=== PATIENT | male | born 1955 | race Caucasian/White ===

== ENCOUNTER 2017-01-01 06:08 | Inpatient (IN) | payer OTHER ==
[2016-12-24 10:03] LABS: HEMOGLOBIN 13.1 g/dL (13.6-17.8)
[2016-12-24 10:18] LABS: BUN (BLOOD UREA NITROGEN) 11 MG/DL (6-23); CHLORIDE, SERUM 105 MMOL/L (96-112); CREATININE 0.92 MG/DL (0.70-1.30); GFR AFRICAN AMERICAN 105 ML/MIN (>=60); GFR NON AFRICAN AMERICAN 91 ML/MIN (>=60); SODIUM, SERUM 142 MMOL/L (135-148)
[2016-12-24 10:19] LABS: CO2 (CARBON DIOXIDE) 33 MMOL/L (24-34); GLUCOSE, SERUM 90 MG/DL (60-99)
--- NOTE | ~2017-01-01 | OP ---
Record Of Operation [facility] [address] [place]. [address] NAME: GUY AGUIRRE : 59 STATUS : ADM IN PAT#: [id number] AGE: 61 ADM/REG DATE : 01/01/17 MR#: [id number] REPORT SERV DATE: 01/02/17 DICTATED BY: GARCIA BRAVO II DATE: 01/02/17 REPORT STATUS : Draft TRANSCRIBED BY: MODL DATE: 01/02/17 DATE OF PROCEDURE: 01/01/2017 PREOPERATIVE DIAGNOSES: 1. Right lower extremity radiculopathy. 2. L3-L4, L4-L5 stenosis with facet instability. 3. L4-L5 coronal collapse. 4. Spondylolisthesis L4-L5 (degenerative and iatrogenic). POSTOPERATIVE DIAGNOSES: 1. Right lower extremity radiculopathy. 2. L3-L4, L4-L5 stenosis with facet instability. 3. L4-L5 coronal collapse. 4. Spondylolisthesis L4-L5 (degenerative and iatrogenic). PROCEDURES: 1. Revision facetectomy and laminectomy, L3-L4, L4-L5. 2. Interbody arthrodesis, L3-L4, L4-L5. 3. Application of prosthetic devices, L3-L4, L4-L5. 4. Posterior segmental instrumentation, L3-L4, L4-L5. 5. Posterolateral arthrodesis L3-L4, L4-5. 6. Use of local autograft, allograft substitute, and bone morphogenic protein. 7. Use of the microscope and stereotactic spinal imaging. FLUIDS: 1700 mL LR. ESTIMATED BLOOD LOSS: 100 mL. DRAIN: One drain. COMPLICATIONS: None. IMPLANTS: Alpha-Ros. PREOPERATIVE HISTORY: This is a very friendly 61-year-old gentleman, who experienced leg pain radiating from the buttock into the thigh. We discussed the pros and cons of continuing nonoperative care versus surgery. We initially had discussed a fusion at his index surgery, but he was not interested in the fusion and wanted to try the minimally invasive nonfusion approach. Unfortunately, his spondylolisthesis appears to be worsening and his facets now appear unstable because of degeneration and following the actual laminectomy and partial facetectomy. We discussed the fusion at both levels and he understood the risks and the benefits. He is very detail oriented. The patient is very intelligent and we discussed in great detail the actual procedure as well as the benefits and the risks and the outcomes. DESCRIPTION OF PROCEDURE: After informed consent was obtained, the patient was brought to Record Of Operation [address] [place]. [address] NAME: GUY AGUIRRE : 59 STATUS : ADM IN PAT#: [id number] AGE: 61 ADM/REG DATE : 01/01/17 MR#: [id number] REPORT SERV DATE: 01/02/17 DICTATED BY: GARCIA BRAVO II DATE: 01/02/17 REPORT STATUS : Draft TRANSCRIBED BY: MODAlphonso DATE: 01/02/17 the operating room at his request and general anesthesia achieved. He was placed in a prone position and the back was prepped and draped in sterile fashion. Stereotactic spinal pin was then placed into the left iliac crest and the intraoperative CT scan completed. The stereotactic guidance was then used throughout the remainder of the case. Next, the minimally invasive incision was performed on the right at L3-L4 and L4-L5, and the remaining facets identified at L3-L4 and L4-L5. The transverse processes were also dissected upon at L3-L4 and L4-L5. With the microscope now in place, the revision facetectomy was performed at L3-L4. The pars was taken down with the high-speed bur and the Kerrison rongeurs. The L3 and L4 nerve root exhibited moderate compression upon them. The stenosis was alleviated with both facets. Next, the interbody arthrodesis was initiated with diskectomy at L3-L4. The endplates were denuded of their cartilage with the shannan and the curettes, the irrigation was performed. Next, the prosthetic device was chosen and placed at L3-L4. This contained allograft substitute and bone morphogenic protein. Next, the local autograft was also placed into the anterior column. Next, the L4-L5 level was addressed in a similar manner with facetectomy. This was a revision facetectomy also. The pedicle to pedicle decompression was achieved and the severe stenosis alleviated. The coronal collapse also was causing some significant L4 nerve root compression. At this point, after both the L4 and L5 nerve roots were acceptably decompressed, the interbody arthrodesis was initiated. The shannan were used followed by removal of additional cartilage from the endplates. The area was now irrigated followed by placement of the prosthetic device at L4-L5. This also contained allograft substitute and bone morphogenic protein. Next, the pedicle screws were applied in the L3, L4, and L5 on the right. Percutaneous screws were placed on the left in the L3 and L5. A repeat CT scan confirmed acceptable placement of implant. The rods were then final tightened. Next, the decortication was performed of the L3, L4, and L5 transverse processes on the right. Local autograft, allograft substitute, and bone morphogenic protein were placed along the decorticated surfaces. A deep drain was placed followed by standard closure and the patient was then extubated and transferred to PACU in stable condition. CORIN/JACOB Garcia Bravo II, M.D. Record Of Operation [address] [address] NAME: DEBSHERRIEFLORGUY Charlie : 59 STATUS : ADM IN [facility]#: [id number] AGE: 61 ADM/REG DATE : 01/01/17 MR#: [id number] REPORT SERV DATE: 01/02/17 DICTATED BY: GARCIA BRAVO II DATE: 01/02/17 REPORT STATUS : Draft TRANSCRIBED BY: JACOB DATE: 01/02/17 / [id number] CC: Vu Javier II, M.D.
[~2017-01-01 06:08] MED LIST: ADVIL MIGRAI200 MG PO; ADVIL PO; AMB10 PO; COZAAR100 MG PO; DURAFLEX PO; FISH-EPA1000 MG PO; KLONO5 PO; MULTIVITAMI1 PO; PRESER VISION; PRESERVISION A1 EAC1 PO; PRILO PO; VOLT75 PO; [UNRECOGNIZED DRUG - OTHER] PO
[2017-01-03] MEDS ORDERED: MSCONT15 PO (10:23)
[2017-01-03] MEDS ORDERED: PCET PO (10:24)
[2017-01-03] MEDS ORDERED: V2 PO (10:24)
== END 2017-01-03 11:07 | disposition home or self-care (01) | DRG 460 ==
LOC: SDC/OF 06:08 → 3SO 13:43
PROVIDERS: Orthopaedic Surgery
PROC: 0SG10A1 (ICD-10-PCS; principal; 2017-01-01 06:45)
PROC: 0ST20ZZ Resection of Lumbar Vertebral Disc, Open Approach (ICD-10-PCS; 2017-01-01 06:45)
PROC: 4A11X4G Monitoring of Peripheral Nervous Electrical Activity, Intraoperative, External Approach (ICD-10-PCS; 2017-01-01 06:45)
DX: M51.16 Intervertebral disc disorders with radiculopathy, lumbar region (principal); I10 Essential (primary) hypertension; M43.16 Spondylolisthesis, lumbar region; K21.9 Gastro-esophageal reflux disease without esophagitis; Z88.0 Allergy status to penicillin
CPT/HCPCS: 80048; 82962; 85014; 85018; 87641; 88304; 88311; 93005; 94660; 97162-GP; 97530-GP; A9270-GY; C1713; C1769; J0690; J1170; J2250; J2370; J2405; J2710; J3010; J3370